=== PATIENT | female | born 1975 | race African-American/Black ===

== ENCOUNTER 2021-08-01 04:43 | Day surgery (SDC) | payer OTHER ==
[2021-07-31 13:22] VITALS: BMI 32.1
[2021-08-01] MEDS ORDERED: oxyCODONE HCL 5 MG TABLET PO PRN (13:24)
[2021-08-01] MEDS ORDERED: ONDANSETRON 4 MG/2 ML VIAL IVPUSH PRN (13:24)
[2021-08-01] MEDS ORDERED: DEXAMETHASONE SOD PHOSPHATE 4 MG/1 ML VIAL ONE (13:28)
[2021-08-01] MEDS ORDERED: LIDOCAINE HCL/PF 2% SDV 5ML VIAL ONE (13:28)
[2021-08-01] MEDS ORDERED: KETOROLAC TROMETHAMINE 30 MG/1 ML VIAL ONE (13:28)
[2021-08-01] MEDS ORDERED: PROPOFOL 20 ML ONE ×2 (13:28→13:29)
[2021-08-01] MEDS ORDERED: MIDAZOLAM HCL 2 MG/2 ML SINGLE DOSE VIAL ONE (13:29)
[2021-08-01] MEDS ORDERED: KETAMINE HCL 200 MG/20 ML VIAL ONE (13:30)
[2021-08-01] MEDS ORDERED: LACTATED RINGERS SOLUTION 1,000 ML IV SCH (13:30)
[2021-08-01] MEDS ORDERED: ceFAZolin SODIUM 1 GM VIAL ONE (14:12)
[2021-08-01] MEDS ORDERED: ceFAZolin SODIUM 1 GM VIAL IVPB ONE (14:12)
[2021-08-01] MEDS ORDERED: ACETAMINOPHEN 1000 MG/100 ML BAG IVPB ONE (16:35)
[2021-08-01 17:38] VITALS: BP 120/79; PULSE 81; TEMP 97.8
== END 2021-08-01 17:50 | disposition home or self-care (01) ==
LOC: JASU-SURG 04:43
PROVIDERS: ATTEND Obstetrics & Gynecology
PROC: 0UDB7ZX Extraction of Endometrium, Via Natural or Artificial Opening, Diagnostic (ICD-10-PCS; principal; 2021-08-01 13:30)
DX: N88.2 Stricture and stenosis of cervix uteri (principal)
CPT/HCPCS: 81025; 88305-TC; 94760; J0131

== ENCOUNTER 2023-09-27 09:36 | Emergency (ER) | payer OTHER ==
[2023-09-27 09:47] VITALS: BP 120/82; PULSE 84; RESP 18; TEMP 98; BMI 43.7
[2023-09-27] MEDS ORDERED: KETOROLAC TROMETHAMINE 30 MG/1 ML VIAL ONE (10:16)
[2023-09-27] MEDS ORDERED: CYCLOBENZAPRINE HCL 10 MG TABLET (FP) ONE (10:16)
[2023-09-27] MEDS ORDERED: LIDOCAINE 4% PATCH TP ONE (10:16)
[2023-09-27] MEDS ORDERED: ACETAMINOPHEN 500 MG TABLET (FP) ONE (10:16)
[2023-09-27] MEDS: LIDOCAINE 4% PATCH TP ONE (10:22)
[2023-09-27] MEDS: ACETAMINOPHEN 500 MG TABLET (FP) PO ONE (10:22)
[2023-09-27] MEDS: KETOROLAC TROMETHAMINE 30 MG/1 ML VIAL IM ONE (10:22)
[2023-09-27] MEDS: CYCLOBENZAPRINE HCL 10 MG TABLET (FP) PO ONE (10:22)
[2023-09-27] MEDS ORDERED: LIDOCAINE PATCH REMOVAL MC SCH (22:00)
== END 2023-09-27 12:54 | disposition home or self-care (01) ==
LOC: JERFT 09:36
PROC: 3E0233Z Introduction of Anti-inflammatory into Muscle, Percutaneous Approach (ICD-10-PCS; principal; 2023-09-27)
DX: M54.50 Low back pain, unspecified (principal); G89.29 Other chronic pain; M47.817 Spondylosis without myelopathy or radiculopathy, lumbosacral region
CPT/HCPCS: 72131-TC; 96372; 99284-25